=== PATIENT | male | born 1950 | race Caucasian/White ===

== ENCOUNTER → 2016-07-05 | Outpatient (CLI) | payer MEDICARE, OTHER ==
[2015-08-28 08:06] VITALS: BP 112/65
--- NOTE | 2016-07-05 10:44 | RAD ---
Indication post lithotripsy. A single KUB was obtained. Comparison is made to an examination 11/04/2015. Note is made of a previous CT examination 08/28/2015. The abdominal gas pattern is normal. No definite renal or ureteral calculi are seen on plain film. IMPRESSION: No definite renal or ureteral calculi seen
== END | disposition home or self-care (01) ==
LOC: RAD 10:18
PROVIDERS: ATTEND Urology
DX: N20.0 Calculus of kidney (principal); N20.1 Calculus of ureter; N40.1 Benign prostatic hyperplasia with lower urinary tract symptoms
CPT/HCPCS: 74000

== ENCOUNTER 2017-07-13 16:30 | Emergency (ER) | payer MEDICARE, OTHER ==
[2017-07-13 17:40] LABS: ADD MAN DIFF? NO
[2017-07-13 17:42] LABS: BASO # 0.1 x10^3/uL (0.0-0.2); BASO % 1 % (0-3); EOS # 0.2 x10^3/uL (0.0-0.7); EOS % 2 % (0-3); HEMATOCRIT 52.2 % (39.0-53.0); LYMPH % 25 % (24-48); MEAN CORPUSCULAR HEMOGLOBIN 33 pg (25-35); MEAN CORPUSCULAR HGB CONC 35 g/dL (31-37); MEAN CORPUSCULAR VOLUME 94 fL (79-100); MONO # 1.1 x10^3/uL (0.0-1.1); MONO % 13 % (0-9); NEUT # 4.8 x10^3uL (1.8-7.7); NEUT % 59 % (31-73); PLATELET COUNT 196 x10^3/uL (140-400); RED BLOOD COUNT 5.53 x10^6/uL (4.30-5.70); RED CELL DISTRIBUTION WIDTH 13.8 % (11.5-14.5); WHITE BLOOD COUNT 8.1 x10^3/uL (4.0-11.0)
[2017-07-13] MEDS: IV NORMAL SALINE 1000ML BAG 1,000 ML IV ×2 (17:46)
[2017-07-13] MEDS: ONDANSETRON PF 4 MG/2 ML VIAL. IV ×2 (17:47)
[2017-07-13] MEDS: fentaNYL PF VIAL 100 MCG/2 ML VIAL IV ×2 (17:48)
[2017-07-13] MEDS: KETOROLAC 30 MG/ML INJ. IV ×2 (17:49)
[2017-07-13 17:50] LABS: ANION GAP 9 (6-14); BLOOD UREA NITROGEN 14 mg/dL (8-26); BUN/CREATININE RATIO 13 (6-20); CALCIUM 9.2 mg/dL (8.5-10.1); CARBON DIOXIDE 28 mmol/L (21-32); CHLORIDE 101 mmol/L (98-107); CREATININE 1.1 mg/dL (0.7-1.3); GLUCOSE 89 mg/dL (70-99); POTASSIUM 3.8 mmol/L (3.5-5.1); SODIUM 138 mmol/L (136-145)
[2017-07-13 17:56] LABS: ALBUMIN 3.7 g/dL (3.4-5.0); ALK PHOS 47 U/L (46-116); ALT (SGPT) 60 U/L (16-63); AST (SGOT) 33 U/L (15-37); LIPASE 268 U/L (73-393); TOTAL BILIRUBIN 0.7 mg/dL (0.2-1.0); TOTAL PROTEIN 7.5 g/dL (6.4-8.2)
[2017-07-13 19:18] LABS: BILIRUBIN,URINE NEGATIVE (NEG); CLARITY,URINE CLEAR; COLOR,URINE AMBER; GLUCOSE,URINE NEGATIVE (NEG); NITRITE,URINE NEGATIVE (NEG); PROTEIN,URINE NEGATIVE (NEG-TRACE)
[2017-07-13 19:37] LABS: BACTERIA,URINE 0 /HPF (0-FEW); RBC,URINE 0 /HPF (0-2); SQUAMOUS EPITHELIAL CELL,UR OCC /LPF; WBC,URINE 0 /HPF (0-4)
== END 2017-07-13 20:09 | disposition home or self-care (01) ==
LOC: ER 20:09
DX: K57.92 Diverticulitis of intestine, part unspecified, without perforation or abscess without bleeding (principal); K21.9 Gastro-esophageal reflux disease without esophagitis; Z88.8 Allergy status to other drugs, medicaments and biological substances
CPT/HCPCS: 36415; 74176; 80053; 81001; 83690; 85025; 96361; 96374; 96375; 99285-25; J1885; J2405; J3010; J7030

== ENCOUNTER → 2020-03-22 | Outpatient (CLI) | payer OTHER ==
[2017-07-13 19:30] VITALS: BP 151/94
[~2020-03-22] MED LIST: ASCO100T4 PO; ASPI-630 PO; CHOL400C PO; CIPR500T94 PO; CYAN10002 IM; GABA600T7 PO; IBUP200T44 PO; IOHEXOL 180 MG/ML 10 ML VIAL. ONE; MAGN250T10 PO; METR500T PO; OMEG1CAP50 PO; OMEP20TA63 PO; SILD50TA PO; TADA5TAB PO; TAMS0.4C97 PO; TEST200V3 IM; UBID10CA5 PO; VALA10005 PO; methylPREDNISolone ACETATE 40 MG/ML VIAL. ONE; methylPREDNISolone ACETATE 80 MG/ML VIAL. ONE
--- NOTE | 2020-03-22 12:48 | PDOC1 ---
INITIAL PAIN CONSULT DATE OF SERVICE: DOS: DATE: 03/22/20 TIME: 12:39 CHIEF COMPLAINT: Chief Complaint: Low back and right lower extremity pain HISTORY OF PRESENT ILLNESS: 89-year-old male presents history of pain low back right lower extremity for many years but worse over the past 4 months or so without any specific injury or accident that he is aware of. Is been active most of his career and [place] d multiple injuries along the way reports that pain now is not getting better in the low back and the right lower extremity he has tried chiropractic treatment as well as doing exercise currently which helps temporarily. Patient scribes the pain is in the low back to the right lower extremity posterior gluteus posterior lateral thigh posterior calf posterior lower leg and foot was described as stabbing sharp constant shooting radiating in the right leg no symptoms on the left leg also some aching in the low back. Patient reports is worse with walking standing changing positions worse at night waking from sleep at least 1-3 times a night does not affect his bowel bladder control but does affect his ability to walk every night use any assistive devices. Patient has tried Motrin as well as gabapentin both of which decreased the pain but only very mildly. Patient reports that his disability rating 0-10 10 being the worst is a 5 with family home was possibilities recreation occupation 6 with social activity for with sexual behavior 3 with self-care along with life support activities. Patient have MRI scan of the lumbar spine dated February 29, 2000 showing L5-S1 anterolisthesis and asymmetrical to the left mild narrowing the neural canals bilaterally suggested with pseudodisc seen posteriorly asymmetrically L2 4 shows borderline disc bulge with no central canal stenosis L4-5 shows no central stenosis with bilateral facet hypertrophy with minimal fluid signal in the facet joints greater on the left. Patient reports no loss of motor function but significant ability of the right lower extremity with walking and standing. PAST MEDICAL HISTORY: PMH: Hearing loss, gastroesophageal reflux, melanoma left arm, dizziness, arthritis, kidney stones PREVIOUS SURGERIES: Past Surgical Hx: Bilateral cataract extraction, umbilical hernia repair, bunionectomy, left rotator cuff repair, lithotripsy CURRENT MEDICATIONS: Current Meds: Active Scripts Medications Dose Route/Sig Max Daily Dose Days Date Category Magnesium (Magnesium Oxide) 250 Mg Tablet Unknown Dose PO DAILY 03/22/20 Reported Co Q-10 (Ubidecarenone) 10 Mg Capsule 1 Cap PO DAILY 30 03/22/20 Reported Fish Oil 1,000 Mg Softgel ([place]-3 Fatty Acids/Fish Oil) 1 Each Capsule 1 Cap PO DAILY 30 03/22/20 Reported Vitamin D3 (Cholecalciferol (Vitamin D3)) 10 Mcg Capsule 10 Mcg PO DAILY 03/22/20 Reported Vitamin C (Ascorbic Acid) 100 Mg Tablet 1 Tab PO DAILY 30 03/22/20 Reported Cyanocobalamin Injection (Cyanocobalamin (Vitamin B-12)) 1,000 Mcg/1 Ml Vial 1 Ml IM Q2WKS 03/22/20 Reported Testosterone Cypionate 200 Mg/1 Ml Vial 1 Ml IM Q2WKS 03/22/20 Reported Cialis (Tadalafil) 5 Mg Tablet 20 Mg PO ONCE PRN 03/22/20 Reported Viagra (Sildenafil Citrate) 50 Mg Tablet 1 Tab PO UD 03/22/20 Reported Gabapentin 600 Mg Tablet 100 Mg PO TID 03/22/20 Reported Valtrex (Valacyclovir Hcl) 1,000 Mg Tablet 1 Tab PO DAILY 03/22/20 Reported Motrin Ib (Ibuprofen) 200 Mg Tablet 800 Mg PO Q6H PRN 03/22/20 Reported Flomax (Tamsulosin Hcl) 0.4 Mg Cap.er.24h 1 Cap PO DAILY 03/22/20 Reported Aspirin 81 Mg Tab.chew 1 Tab PO DAILY 03/22/20 Reported Prilosec Otc (Omeprazole Magnesium) 20 Mg Tablet.dr 1 Tab PO DAILY 30 03/22/20 Reported ALLERGIES; Allergies: Coded Allergies: niacin (Verified Allergy, Intermediate, 08/28/15) FAMILY HISTORY: Family Hx: No major medical problems or conditions that he is aware of SOCIAL HISTORY: Social Hx: Patient drinks about 1 glass of wine once a month does not smoke or use any illegal illicit or recreational drugs is lives with his spouse lives locally in [facility] REVIEW OF SYSTEMS: ROS: Positive for those items mentioned in history of present illness, all systems a re reviewed, otherwise negative, is complete full and well-documented on patient's chart PHYSICAL EXAM: VS: Blood pressure is 139/98 pulse 72 respirations 16 temperature is 97.7 F height is 5 feet 8 inches weight is 218 Pounds PE: PHYSICAL EXAMINATION: GENERAL: The patient is awake, alert, oriented, appropriate, very pleasant demeanor HEENT: Shows normocephalic, atraumatic. Extraocular movements are intact and symmetrical. Oral cavity: Mucous membranes moist and pink. Dentition is intact. NECK: Shows anterior throat supple without palpable lymphadenopathy noted. Swallow reflex symmetrical. CHEST: Shows normal on inspection. Breath sounds are clear bilaterally, no rales rhonchi wheezes auscultated. HEART: Shows S1, S2 clear. No murmurs auscultated. ABDOMEN: Soft, nontender, nondistended, obese. No palpable organomegaly is noted. No rebound or guarding demonstrated. BACK: Shows spine grossly in the midline. Normal-appearing cervical lordotic curvature. There is slightly increased thoracic kyphosis, some minor flattening of the lumbar lordotic curvature. Lumbar paraspinous muscles show symmetrical on inspection, on palpation shows some moderate tenderness diffusely throughout the upper, middle and lower distribution of the paraspinous muscles bilaterally and also into the lower thoracic paraspinous musculature, firm and tender, but without specific trigger points, without radiation of pain. The patient has good rotational motion of the lumbar spine, both laterally as well as extension and flexion without significant difficulty. No tenderness over the spinous processes, sacrum or sacroiliac regions. EXTREMITIES: Lower extremities show deep tendon reflexes 2+ in the patellar and tendo calcaneus tendons. Motor exam is 4 on a scale of 5 with right dorsiflexion, extension, quadriceps and hamstring flexion and 5/5 on the left. Peripheral pulses are 1+ posterior tibial. No peripheral edema is noted bilaterally. Lower extremities are warm and dry to touch, equal in color and appearance. Straight leg raise noted to be positive on the right about 40 degrees, left side is negative. Gaenslen's and Pierre's maneuvers are negative as well. The patient is able to stand, stand on his toes without significant difficulty or loss of balance walks with a slight favoring gait and a limp. He is to favor the right lower extremity but not use any assistive devices to ambulate. SKIN: Shows warm and dry, good turgor. No edema. No sores, rashes or bruising throughout. IMPRESSION: Impression: 69-year-old male with long history low back right lower extremity pain radicular fashion MRI scan lumbar spine as noted Arthritis Hearing loss Plan: Options were discussed with the patient including conservative medical management, physical therapy, and interventional techniques. he would like to pursue interventional techniques. We discussed a lumbar epidural steroid injection using description as well as anatomical models to describe the proc edure. Risks were discussed including but not limited to: Bleeding, infection, possibility of epidural hematoma and subsequent neurological compromise, dural puncture, headaches, spinal cord and/or nerve damage, side effects of steroid medication, and poor results regarding pain control. Patient understands wished to proceed. Patient will return to the clinic in approximate 2 weeks for follow-up with counselors return appointment activity level and side effects to be aware of. Procedure is lumbar epidural steroid injection under local anesthetic using sterile prep and drape at the L5-S1 level using C-arm fluoroscopic guidance in both AP and lateral views medications injected is 120 mg Depo-Medrol + 10 mL preservative-free normal saline and 2 mL contrast- condition at discharge is stable patient tolerated procedure well had no complications. TANIA MARTÍNEZ MD Mar 22, 2020 12:48
== END ==
LOC: PNCL 09:01
PROVIDERS: ATTEND Anesthesiology
DX: M54.5 Low back pain (principal); M79.604 Pain in right leg; K21.9 Gastro-esophageal reflux disease without esophagitis; M19.90 Unspecified osteoarthritis, unspecified site; Z98.890 Other specified postprocedural states; Z85.820 Personal history of malignant melanoma of skin; Z88.8 Allergy status to other drugs, medicaments and biological substances; Z79.899 Other long term (current) drug therapy
CPT/HCPCS: 62323; J1030; J1040; Q9965

== ENCOUNTER → 2020-04-08 | Outpatient (CLI) | payer OTHER ==
[2017-07-13 19:30] VITALS: BP 151/94
--- NOTE | 2020-04-08 09:38 | PDOC ---
Progress Note - Pain Clinic Date of Service: DOS: DATE: 04/08/20 TIME: 09:35 Diagnosis: Dx: Lumbar radiculopathy with lumbar degenerative disc disease History or Present Illness: HPI: 69-year-old male returns follow-up status post lumbar epidural steroid injection x1. Patient reports approximate 50% improvement in the low back and right lower extremity pain. Patient reports no new motor or sensory deficits no new bowel or bladder incontinence. Patient ports been able to increase his distance walking doing greater distances traveling household activities much greater ease and comfort. Patient reports occasionally wakes him from sleep but not most nights. Patient reports previously was waking him almost every night. Patient reports his pain is a 10 on scale 10 is worst for an average to its least is a 4 today. Describes aching and dull in the low back rating the posterior gluteus posterior thigh posterior calf to the ankle some the lateral calf as well on the right side only. Physical Exam: VS: Pressure is 144/94 pulse is 66 respirations 18 temperature 98.0 F height is 68 inches, weight is 216 pounds PE: PHYSICAL EXAMINATION: GENERAL: The patient is awake, alert, oriented, appropriate, very pleasant demeanor HEENT: Shows normocephalic, atraumatic. Extraocular movements are intact and symmetrical. Oral cavity: Mucous membranes moist and pink. NECK: Shows anterior throat supple without palpable lymphadenopathy noted. Swallow reflex symmetrical. CHEST: Shows normal on inspection. Breath sounds are clear bilaterally. HEART: Shows S1, S2 clear. No murmurs auscultated. ABDOMEN: Soft, nontender, nondistended. No palpable organomegaly is noted. No rebound or guarding demonstrated. BACK: Shows spine grossly in the midline. Normal-appearing cervical lordotic curvature. There is slightly increased thoracic kyphosis, some minor flattening of the lumbar lordotic curvature. Lumbar paraspinous muscles show symmetrical on inspection, on palpation shows some moderate tenderness diffusely throughout the upper, middle and lower distribution of the paraspinous muscles without specific trigger points, without radiation of pain. The patient has good rotational motion of the lumbar spine, both laterally as well as extension and flexion without significant difficulty. No tenderness over the spinous processes, sacrum or sacroiliac regions. EXTREMITIES: Lower extremities show deep tendon reflexes 2+ in the patellar and tendo calcaneus tendons. Motor exam is 4 on a scale of 5 with right dorsiflexion, extension, quadriceps and hamstring flexion and 5/5 on the left. Peripheral pulses are 1+ posterior tibial. No peripheral edema is noted bilaterally. Lower extremities are warm and dry to touch, equal in color and appearance. SKIN: Shows warm and dry, good turgor. No edema. No sores, rashes or bruising throughout. Procedure: Procedure: Options were discussed with the patient. Patient chart was reviewed as his current medication regimen updated current review of systems updated today as well. We will proceed with a second in a series lumbar epidural steroid injection today with fluoroscopic guidance. Risks were discussed including but not limited to: Bleeding, infection, possibility of epidural hematoma and subsequent neurological compromise, dural puncture, headaches, spinal cord and/or nerve damage, side effects of steroid medication, and poor results regarding pain control. Patient understands wished to proceed. Patient will return to the clinic in approximate 2 weeks for follow-up was counseled as to return appointment activity level and side effects to be aware of. Medication Injected: Med Injected: Procedure is lumbar epidural steroid injection under local anesthetic using sterile prep and drape at the L5-S1 level using C-arm fluoroscopic guidance in both AP and lateral views medications injected is 120 mg Depo-Medrol + 10 mL preservative-free normal saline and 2 mL contrast- condition at discharge is stable patient tolerated procedure well had no complications. Condition at Discharge: Condition at Discharge: Condition at discharge stable, patient tolerated procedure well and had no complications. TANIA MARTÍNEZ MD Apr 08, 2020 09:38
== END | disposition home or self-care (01) ==
LOC: PNCL 08:45
PROVIDERS: ATTEND Anesthesiology
DX: M51.16 Intervertebral disc disorders with radiculopathy, lumbar region (principal); Z79.82 Long term (current) use of aspirin; Z79.899 Other long term (current) drug therapy; Z98.890 Other specified postprocedural states; Z72.89 Other problems related to lifestyle; Z88.8 Allergy status to other drugs, medicaments and biological substances
CPT/HCPCS: 62323; J1030; J1040; Q9965

== ENCOUNTER → 2020-04-25 | Outpatient (CLI) | payer OTHER ==
[2017-07-13 19:30] VITALS: BP 151/94
[~2020-04-25] MED LIST changes: -IOHEXOL 180 MG/ML 10 ML VIAL. ONE; -methylPREDNISolone ACETATE 40 MG/ML VIAL. ONE; -methylPREDNISolone ACETATE 80 MG/ML VIAL. ONE
--- NOTE | 2020-04-25 10:08 | PDOC ---
Progress Note - Pain Clinic Date of Service: DOS: DATE: 04/25/20 TIME: 10:04 Diagnosis: Dx: Lumbar radiculopathy with lumbar degenerative disc disease History or Present Illness: HPI: 69-year-old male returns follow-up status post lumbar epidural to injection x2. Ports about 50% improvement overall but down to about 10% improvement now with time. Patient's last injection was April 08, 2020 did well initially but the pain is returning fairly significant low back and right lower extremity posterior gluteus posterior thigh posterior calf and lateral calf as well with some numbness and tingling patient describes as aching in the back tight in the back radiating, constant in the leg worse with walking standing having significant claudication symptoms where he must stop when he is walking and rest and then start again the pain returns and begins to radiate in the right lower extremity. Patient rates his pain as a 7 on scale 10 is worse over the past week for an average 1 its least and is a 4 today. Patient reports increasing fatigability and weakness in the right lower extremity as well. Patient ports better with sitting or laying down generally is not awakening from sleep at night. Patient reports no new motor or sensory deficits no new bowel or bladder incontinence or other complaints. Physical Exam: VS: Blood pressure is 130/81 pulse 82 respirations are 18 temperature 97.5 F height is 68 inches weight is 216 pounds PE: PHYSICAL EXAMINATION: GENERAL: The patient is awake, alert, oriented, appropriate, very pleasant demeanor HEENT: Shows normocephalic, atraumatic. Extraocular movements are intact and symmetrical. Oral cavity: Mucous membranes moist and pink. Dentition is intact. NECK: Shows anterior throat supple without palpable lymphadenopathy noted. Swallow reflex symmetrical. CHEST: Shows normal on inspection. Breath sounds are clear bilaterally no rales rhonchi or wheezes. HEART: Shows S1, S2 clear. No murmurs auscultated. ABDOMEN: Soft, nontender, nondistended, obese. No palpable organomegaly is noted. No rebound or guarding demonstrated. BACK: Shows spine grossly in the midline. Normal-appearing cervical lordotic curvature. There is slightly increased thoracic kyphosis, some minor flattening of the lumbar lordotic curvature. Lumbar paraspinous muscles show symmetrical on inspection, on palpation shows some moderate tenderness diffusely throughout the upper, middle and lower distribution of the paraspinous muscles bilaterally without trigger points, without radiation of pain. The patient has good rotational motion of the lumbar spine, both laterally as well as extension and flexion without significant difficulty. No tenderness over the spinous processes, sacrum or sacroiliac regions. EXTREMITIES: Lower extremities show deep tendon reflexes 2+ in the patellar and tendo calcaneus tendons. Motor exam is 4 on a scale of 5 with right dorsiflexion, extension, quadriceps and hamstring flexion and 5/5 on the left. Peripheral pulses are 1+ posterior tibial. No peripheral edema is noted bilaterally. Lower extremities are warm and dry to touch, equal in color and appearance. SKIN: Shows warm and dry, good turgor. No edema. No sores, rashes or bruising throughout. Procedure: Procedure: Options were discussed with the patient. Patient will chart reviews his current medication regimen updated current review of systems updated today as well. We will proceed with a third in the series lumbar epidural steroid injection today with fluoroscopic guidance. Risks were discussed including but not limited to: Bleeding, infection, possibility of epidural hematoma and subsequent neurological compromise, dural puncture, headaches, spinal cord and/or nerve damage, side effects of steroid medication, and poor results regarding pain control. Patient understands wished to proceed. Patient will return to clinic in approximate 2 weeks for follow-up was counseled as return appointment activity level and side effects to be aware of. Recommend: If patient not significantly improved did discuss neurosurgical evaluation with Dr. Andres Oliveros, for any surgical alternatives. Medication Injected: Med Injected: Procedure is lumbar epidural steroid injection under local anesthetic using sterile prep and drape at the L5-S1 level using C-arm fluoroscopic guidance in both AP and lateral views medications injected is 120 mg Depo-Medrol + 10 mL preservative-free normal saline and 2 mL contrast- condition at discharge is stable patient tolerated procedure well had no complications. Condition at Discharge: Condition at Discharge: Condition at discharge is stable, patient tolerated procedure well and had no complications. Recommend if not significantly improved neurosurgical evaluation with TANIA Moise MD Apr 25, 2020 10:08
== END | disposition home or self-care (01) ==
LOC: PNCL 09:38
PROVIDERS: ATTEND Anesthesiology
DX: M51.16 Intervertebral disc disorders with radiculopathy, lumbar region (principal); Z79.82 Long term (current) use of aspirin; Z79.899 Other long term (current) drug therapy; Z88.8 Allergy status to other drugs, medicaments and biological substances; Z72.89 Other problems related to lifestyle
CPT/HCPCS: 62323